=== PATIENT | female | born 1950 | race Caucasian/White ===

== ENCOUNTER 2017-10-09 18:30 | Emergency (ER) | payer OTHER, MEDICARE ==
--- NOTE | 2017-10-09 18:51 | EDPHY ---
H & P Time Seen by Provider: 10/09/17 18:35 HPI/ROS: 67-year-old female presents complaining of right knee pain, she states her foot got caught in a cord while she was holding papers in a cup of tea in her hand and she tripped in took the direct weight of her fall on her right knee cap, she is here concerned that she may have a fracture of her patella. She states she has taken some Advil at home and this is helping with pain. She denies other injuries from the fall. Review of systems As per HPI General no fever no chills no weakness HEENT no eye pain no eye discharge. No eye redness, no sore throat Respiratory no cough, no shortness of breath Cardiac no chest pain, no peripheral edema GI no abdominal pain, no diarrhea, no constipation, no nausea, no vomiting no flank pain, no hematuria, no dysuria Musculoskeletal positive myalgias, positive joint pain Heme no easy bruising, no easy bleeding Endo no polyuria, no polydipsia Skin no rashes, no pruritus Neuro no syncope, no dizziness, no headaches Psych is no suicidal ideation, no homicidal ideation Past Medical/Surgical History: Depression Hypothyroidism Social History: No alcohol or drug use Smoking Status: Never smoked Physical Exam: 67-year-old female Alert and oriented in no acute distress nontoxic appearance, afebrile Atraumatic normocephalic Neck no JVD Lungs clear to auscultation, no respiratory distress Heart regular rate and rhythm Extremities no cyanosis clubbing edema Right knee Small abrasion overlying patellar ligament Tenderness to palpation of her patella Full range of motion, no instability, negative anterior posterior drawer Able to bear weight Distal pulses intact Constitutional: Initial Vital Signs Temperature (C) 37.0 C 10/09/17 18:36 Heart Rate 69 10/09/17 18:36 Respiratory Rate 18 10/09/17 18:36 Blood Pressure 173/82 H 10/09/17 18:36 O2 Sat (%) 96 10/09/17 18:36 O2 Delivery Mode Room Air Allergies/Adverse Reactions: Sulfa (Sulfonamide Antibiotics) Allergy (Verified 10/09/17 18:35) Home Medications: Medication Instructions Recorded Thyroid 10/09/17 Tymlos 10/09/17 Zoloft 100mg (*) 10/09/17 Medical Decision Making - Diagnostics Imaging Results: Imaging Impressions Knee X-Ray 10/09/17 18:42 Impression: Nothing acute identified. ED Course/Re-evaluation: Patient seen and evaluated for right knee pain, concern for patellar fracture. X-ray DJD No fracture Impression Right knee abrasion, right knee contusion Plan Discharge Continue personal knee brace May use Advil(pts choice) every 8 hr as needed for pain take with food Differential Diagnosis: Differential diagnosis considered but not limited to: Femur fracture, patellar fracture, tib-fib fracture, knee abrasion, knee contusion, knee sprain Departure - Departure Disposition: Home, Routine, Self-Care Clinical Impression: Abrasion, right knee, initial encounter, Contusion of right knee, Contusion of right patella Condition: Good Instructions: Contusion in Adults (ED), Abrasion (ED), Knee Pain (ED) Referrals: Niyah Lombardo MD [Primary Care Provider] - As per Instructions
[2017-10-09 19:50] VITALS: BP 151/72
== END 2017-10-09 19:50 | disposition home or self-care (01) ==
LOC: CED 18:30
DX: S80.01XA Contusion of right knee, initial encounter (principal); S80.211A Abrasion, right knee, initial encounter; W01.0XXA Fall on same level from slipping, tripping and stumbling without subsequent striking against object, initial encounter; Y92.69 Other specified industrial and construction area as the place of occurrence of the external cause; Y99.0 Civilian activity done for income or pay; Y93.89 Activity, other specified
CPT/HCPCS: 73564-PO